=== PATIENT | male | born 1955 | race Caucasian/White ===

== ENCOUNTER 2018-03-12 09:20 | Day surgery (SDC) | payer OTHER ==
[2018-03-12] MEDS ORDERED: MIDAZOLAM 1 MG/ML 2 ML INJ ×4 (11:18→11:19)
[2018-03-12] MEDS ORDERED: FENTAnyl 50 MCG/ML VIAL (11:18)
== END 2018-03-12 15:13 | disposition home or self-care (01) ==
LOC: GIL 09:20
DX: Z12.11 Encounter for screening for malignant neoplasm of colon (principal); K64.8 Other hemorrhoids; D12.5 Benign neoplasm of sigmoid colon; D12.2 Benign neoplasm of ascending colon; K57.30 Diverticulosis of large intestine without perforation or abscess without bleeding
CPT/HCPCS: 45380; 88305

== ENCOUNTER 2018-04-10 09:11 | Day surgery (SDC) | payer OTHER ==
[~2018-04-10 09:11] MED LIST: CEFAZOLIN 2 GM/50 ML (PMX) 50 ML IVPB; SOD CHLORIDE 0.9% 1,000 ML IV
[2018-04-10] MEDS ORDERED: EPHEDrine 50 MG INJ (11:30)
[2018-04-10] MEDS ORDERED: SEVOFLURANE 15 MIN (11:30)
[2018-04-10] MEDS ORDERED: CEFAZOLIN 1 GM INJ (11:30)
[2018-04-10] MEDS ORDERED: BUPIVACAINE 0.25% (MPF) 30 ML INJ (11:33)
[2018-04-10] MEDS ORDERED: LIDOCAINE 2% (SDV) 5 ML INJ (11:50)
[2018-04-10] MEDS ORDERED: PROPOFOL 20 ML ×2 (11:50→12:16)
[2018-04-10] MEDS ORDERED: ROCURONIUM 50 MG INJ (11:50)
[2018-04-10] MEDS ORDERED: FENTAnyl 50 MCG/ML VIAL (11:50)
[2018-04-10] MEDS ORDERED: MIDAZOLAM 1 MG/ML 2 ML INJ (11:50)
[2018-04-10] MEDS ORDERED: SUCCINYLCHOLINE CHLORIDE 100 MG/5 ML SYG IV (11:50)
[2018-04-10] MEDS ORDERED: ROPIVACAINE 0.5 % 30 ML VIAL (11:51)
[2018-04-10] MEDS ORDERED: DEXAMETHASONE 4 MG/ML 5 ML INJ (12:19)
[2018-04-10] MEDS ORDERED: FAMOTIDINE 20 MG INJ (12:19)
[2018-04-10] MEDS ORDERED: ONDANSETRON 4 MG INJ (12:19)
[2018-04-10] MEDS: BUPIVACAINE 0.25% (MPF) 30 ML INJ INJ ×2 (12:49)
[2018-04-10] MEDS ORDERED: HYDROmorphONE 2 MG/ML SYG (12:50)
[2018-04-10] MEDS ORDERED: hydrALAzine 20 MG INJ IV (13:00)
[2018-04-10] MEDS ORDERED: ONDANSETRON 4 MG INJ IV (13:00)
[2018-04-10] MEDS ORDERED: PROCHLORPERAZINE 10 MG INJ IV (13:00)
[2018-04-10] MEDS ORDERED: HYDROmorphONE 1 MG/5 ML IV SYRINGE IV (13:00)
[2018-04-10] MEDS ORDERED: OXYCODONE/ACETAMINOPHEN (5/325) TAB PO (13:00)
[2018-04-10] MEDS ORDERED: LABETALOL HCL 20MG INJ IV (13:00)
[2018-04-10] MEDS: POLYMYXIN/BACITRACIN 1L IRRIG IRR (13:06)
[2018-04-10] MEDS ORDERED: GLYCOPYRROLATE 0.4 MG INJ ×2 (13:15→13:22)
[2018-04-10] MEDS ORDERED: NEOSTIGMINE 10 MG INJ (13:15)
[2018-04-10] MEDS: FENTAnyl 50 MCG/ML VIAL IV ×3 (13:38→14:44)
[2018-04-10] MEDS: HYDROmorphONE 1 MG/5 ML IV SYRINGE IV ×3 (13:39→14:21)
[2018-04-10] MEDS: MEPERIDINE 25 MG INJ IV (13:45)
[2018-04-10] MEDS: DIPHENHYDRAMINE 50 MG INJ IV (13:45)
[2018-04-10] MEDS: HYDROCODONE/APAP (5/325) TAB PO (14:17)
== END 2018-04-10 15:25 | disposition home or self-care (01) ==
LOC: SDS 09:11
DX: K40.00 Bilateral inguinal hernia, with obstruction, without gangrene, not specified as recurrent (principal); I10 Essential (primary) hypertension; E78.5 Hyperlipidemia, unspecified; J44.9 Chronic obstructive pulmonary disease, unspecified
CPT/HCPCS: 49650